=== PATIENT | male | born 1950 | race Caucasian/White ===

== ENCOUNTER → 2019-12-24 00:01 | Outpatient (BNVA) | payer MEDICARE, SELFPAY | PROVIDERS: Referring Provider Nurse Practitioner Family; Visit Provider Orthopaedic Surgery | DX: M25.562 Pain in left knee (principal); M17.12 Unilateral primary osteoarthritis, left knee; M23.304 Other meniscus derangements, unspecified medial meniscus, left knee | CPT/HCPCS: 73560; 73565 ==

== ENCOUNTER → 2022-03-30 09:58 | Outpatient (BNVA) | payer MEDICARE, SELFPAY | PROVIDERS: PCP Family Medicine; Visit Provider Surgery | DX: Z86.010 Personal history of colon polyps (principal) | CPT/HCPCS: 99203 ==

== ENCOUNTER 2022-07-14 07:00 | Day surgery (SDC) | payer MEDICARE, SELFPAY ==
[2022-07-12 10:48] VITALS: BMI 20.6
[2022-07-14 07:25] VITALS: BP 126/76; PULSE 70; RESP 18; TEMP 35.9; O2SAT 97
[2022-07-14] MEDS: sodium chloride 0.9% 1,000 ML 30 ML IV (07:41)
--- NOTE | 2022-07-14 07:43 | P.HP_ITS ---
Same Day Surgery H&P Indication for Procedure/HPI DATE OF PROCEDURE: July 14, 2022 CHIEF COMPLAINT/INDICATIONFOR SURGICAL PROCEDURE: History of colon polyps PREOP DIAGNOSIS: History of colon polyps PLANNED PROCEDURE: Operation Date: 07/14/22 08:30 Proposed Procedures p Colonoscopy 53434/Z12.11(Not Applicable) - Kristopher Grey MD 03/30/2022 This is a pleasant 72 years old gentleman with history of colon polyps.? Patient had a colonoscopy about 9 years ago and polyps were found.? Seems that he had recent occult blood in stool, he denies alexi bleeding per rectum or history of colon cancer.? Reports that he was recently diagnosed with prostate cancer at an early stage and being followed up on in [facility].? Patient comes today to discuss surveillance colonoscopy 07/14/2022 Patient comes today for surveillance colonoscopy ROS All systems have been reviewed negative except as for the above or per problem list. Medications/Allergies* Home Medications Medication Instructions Recorded Confirmed Type naproxen 500 mg tablet,delayed 500 mg PO Q12H 12/24/19 07/14/22 History release (EC-Naproxen) hydrocodone 10 mg-acetaminophen 1 tab PO BID PRN Pain 03/30/22 07/14/22 History 325 mg tablet Allergies/Adverse Reactions Allergy/AdvReac Type Severity Reaction Status Date / Time No Known Allergies Allergy Verified 04/01/22 08:16 Current Medications: Generic Name Dose Route Start Last Admin Trade Name Freq PRN Reason Stop Dose Admin Sodium Chloride 1,000 mls @ 30 mls/hr 07/14/22 07:15 07/14/22 07:41 Sodium Chloride 0.9% IV 07/15/22 07:14 30 mls/hr .Q24H ELAV Administration Pertinent History/Comorbid Conditions* Family History (Updated 03/30/22 @ 10:17 by CHESTER Remy) Cancer Father Social History Smoking and tobacco status: current every day smoker cigarettes Packs smoked per day: 0.5 Alcohol intake: current Alcohol intake frequency: holidays/special occasions only Pertinent Exam Findings alert, oriented x 3, regular rate & rhythm and procedure specific exam findings (Abdominal exam nontender nondistended soft) Recommendations Surgery/Procedure today (Colonoscopy with possible biopsy) Coding Level of Care Code Acute Graduate Nurse for Delon Rodgers
[2022-07-14 09:27] VITALS: BP 114/69; PULSE 66; RESP 18; TEMP 36.3; O2SAT 96
[2022-07-14 09:36] VITALS: BP 115/75; PULSE 66; RESP 18; TEMP 36.1; O2SAT 92
== END 2022-07-14 09:56 | disposition home or self-care (01) ==
PROVIDERS: PCP Family Medicine; Visit Provider Surgery
PROC: 0DJD8ZZ Inspection of Lower Intestinal Tract, Via Natural or Artificial Opening Endoscopic (ICD-10-PCS; CPT 45378; principal; 2022-07-14 08:30)
DX: Z12.11 Encounter for screening for malignant neoplasm of colon (principal); K57.30 Diverticulosis of large intestine without perforation or abscess without bleeding; C61 Malignant neoplasm of prostate; F17.210 Nicotine dependence, cigarettes, uncomplicated; Z86.010 Personal history of colon polyps
CPT/HCPCS: 45378; J2704; J7030

== ENCOUNTER → 2022-07-28 13:11 | Outpatient (BNVA) | payer MEDICARE, SELFPAY | PROVIDERS: PCP Family Medicine; Visit Provider Surgery | DX: Z09 Encounter for follow-up examination after completed treatment for conditions other than malignant neoplasm (principal); K57.31 Diverticulosis of large intestine without perforation or abscess with bleeding; N50.89 Other specified disorders of the male genital organs | CPT/HCPCS: 99213 ==